=== PATIENT | female | born 1995 | race Caucasian/White ===

== ENCOUNTER 2018-03-06 13:27 | Emergency (ER) | payer OTHER, SELFPAY ==
[2018-03-06 13:29] VITALS: BP 112/61; PULSE 71; RESP 18; TEMP 36.9; O2SAT 98; BMI 23.3
--- NOTE | 2018-03-06 13:56 | EKG12_ITS ---
Test Reason : SYNCOPE Blood Pressure : / mmHG Vent. Rate : 063 BPM Atrial Rate : 063 BPM P-R Int : 162 ms QRS Dur : 074 ms QT Int : 392 ms P-R-T Axes : 035 062 063 degrees QTc Int : 401 ms Normal sinus rhythm Low voltage QRS (limb leads) Confirmed by DEMARIO GUERRIER, GABE ([id number]), film or videotape editor PRAVEEN IBARRA ([id number] on 03/08/2018 3:12:42 PM Referred By: ANGELLA Confirmed By:GABE HANKS MD
--- NOTE | 2018-03-06 13:56 | CT_ITS ---
STUDY: CT BRAIN WITHOUT CONTRAST REASON FOR EXAM: Female, 23 years old. SYNCOPE WITH FALL RADIATION DOSAGE (If Supplied By Facility): CTDIvol = ( 44.99 ) mGy, DLP = ( 779.24 ) mGycm TECHNIQUE: Transaxial CT imaging of the brain was performed without administration of intravenous contrast material. Individualized dose optimization techniques were used for this CT. COMPARISON: None. FINDINGS: Normal soft tissue structures. Normal calvarium. Normal size ventricles and extra-axial spaces for the patient's age. Normal white matter tracts of the cerebral hemispheres. Normal basal ganglia and thalami. Normal brainstem. Normal cerebellum. There is no intracranial hemorrhage. There are no findings of an acute ischemic infarction. Normal visualized paranasal sinuses. CT/Brain/Head without Contrast IMPRESSION: Normal unenhanced CT scan of the brain. Electronically Signed: Felix Monique MD at 15:47 EDT , Service support ,
[2018-03-06 14:07] VITALS: BP 103/62; BP 109/64; BP 99/50; PULSE 61; PULSE 82; PULSE 85
[2018-03-06] MEDS: 0.9% Normal Saline 1,000 ML 150 ML IV (14:26)
[2018-03-06 14:38] LABS: Absolute Lymphocyte Count 2.85 X10^3/ul (0.83-4.51); Absolute Neutrophil Count 10.1 X10^3/uL (2.0-7.7); Basophil# 0.02 X10^3/uL; Basophil% 0.1 % (0-1); Eosinophil# 0.07 X10^3/uL; Eosinophils% 0.5 % (0-5); Lymphocyte # 2.85 X10^3/ul (4.0); Lymphocyte % 19.9 % (19-41); Mean Corp Hgb Conc 31.8 g/gl (32-36); Mean Corpuscular Hgb 29.4 pg (27.0-32.0); Mean Corpuscular Volume 92.2 fL (81-99); Mean Platelet Vol. 9.7 fl (6.2-12.0); Monocyte# 1.29 X10^3/uL; Neutrophil # 10.07 X10^3/uL (2.7-7.7); Neutrophil % 70.4 % (47-70); Platelet Count 228 K/mm3 (150-450); RBC Distribution Width CV 13.2 % (11.6-14.6); RBC Distribution Width SD 44.7 fl (35.1-43.9); Red Blood Count 4.77 M/mm3 (4.2-5.4); White Blood Count 14.3 K/mm3 (4.4-11.0)
[2018-03-06 14:44] LABS: POSITIVE COUNT NO; POSITIVE DIFFERENTIAL NO; POSITIVE MORPHOLOGY NO
[2018-03-06 15:04] LABS: Anion Gap 4 (5-15); BUN 10 mg/dL (7-18); BUN/Creat Ratio 12.6 RATIO (10-20); Calcium,Total 8.8 mg/dL (8.5-10.1); Chloride 106 mmol/L (98-107); EST Glomerular Filtration Rate 97 mL/min (>60); Est Glom Filt Rate - Afr Amer 117 mL/min (>60); Estimated Creatinine Clearance 104.14 ml/min; Glucose 79 mg/dL (74-106); Potassium 4.2 mmol/L (3.5-5.1); Sodium Level 140 mmol/L (136-145)
[2018-03-06 15:09] LABS: hCG Titer Quant., Serum < 1 mIU/mL (<9 non-preg)
--- NOTE | 2018-03-06 15:44 | CT_ITS ---
STUDY: CT FACIAL BONES WITHOUT CONTRAST REASON FOR EXAM: Female, 23 years old. SYNCOPE WITH FALL LEFT MAXILLARY AND EYE SWELLING RADIATION DOSAGE (If Supplied By Facility): CTDIvol = ( 29.38 ) mGy, DLP = ( 510.73 ) mGycm TECHNIQUE: The patient was scanned in a multi detector CT scanner. Sagittal and coronal images were reconstructed. Individualized dose optimization techniques were used for this CT. COMPARISON: None. FINDINGS: Soft tissue swelling overlying the left maxilla and zygoma. No underlying fracture. Normal orbital hall and orbital contents. Normal nasal bones and anterior nasal spine. Normal facial bones. There is no demonstrated fracture. Normal visualized paranasal sinuses. CT/Sinus/Facial Bone IMPRESSION: Soft tissue swelling overlying the left maxilla and zygoma. No underlying fracture. Electronically Signed: Felix Monique MD at 16:41 EDT , Service support ,
--- NOTE | 2018-03-06 15:53 | ED.VISSUMM ---
- ER Visit Summary Date of Service: 03/06/18 Chief Complaint: [Syncope] History of Present Illness: The patient is a 23 F [presents the emergency department complaint of syncopal episode that occurred last evening. Patient states that she was at a friend's house and it was hot in the house when she started feeling somewhat lightheaded and had some blurry vision. Patient decided to go outside and get some fresh air and while on the porch barely had a syncopal episode. Patient struck the left side of her face on the concrete sidewalk. Patient next remembers waking up and she was back inside the house. Apparently her girlfriend had noticed her pass out and got help and others help her into the house. Patient states she has had 2 other episodes of syncope in the past without have presented similarly. She denies any chest pain or palpitations prior to the event. She has not been ill recently. Patient does not believe she is as she does have an IUD.] Physical Examination: HEENT-PERRLA, EOMI. Cranial nerves II through XII grossly intact. TMs clear. Mucous membranes moist. No adenopathy. She has ecchymosis and bruising to the inferior left orbit. Patient has bruising over the left cheek and tenderness over the zygomatic arch. No obvious depressions noted. Extraocular muscle movement is painless and there is no evidence for entrapment. Cardiovascular-regular rate and rhythm without murmur or ectopy Lungs-clear to auscultation, chest wall stable without crepitus or subcu emphysema Abdomen-normoactive bowel sounds, soft, nontender, no rebound or rigidity, no peritoneal signs. Neuro pxlg-[id number]-fcvm and heel patterson testing within normal limits, negative Romberg, negative pronator drift, fundi benign Extremities-intact ?4, normal range of motion, normal pulses, atraumatic [] Test Results: [EKG obtained on arrival shows sinus rhythm with a ventricular rate of 63 bpm with no acute ST segment changes. CBC with differential showed a white count of 14, hemoglobin 14, hematocrit 44, platelets 228. Chemistries unremarkable. HCG was negative. Orthostatic vital signs were negative. CT scan of the brain without contrast was normal. CT facial bones pending] Emergency Department Course and Treatment: [] Treatment Plan: [Care of patient turned over the afternoon physician awaiting results of facial CT and final disposition] Disposition: [Pending] Impression: [Syncope-suspect vasovagal Facial contusion] This note was generated with [employer] dictation software. It may contain incorrect words, spelling, and punctuation that were not noted in review of the chart prior to signing ED Disposition - Plan for ED Patient: Chief Complaint: Syncope Referrals: [facility] Doctor,Out of [Primary Care Provider] -
--- NOTE | 2018-03-06 15:57 | ED.DCSUM_ITS ---
- ER Visit Summary Date of Service: 03/06/18 Chief Complaint: [Syncope] History of Present Illness: The patient is a 23 F [presents the emergency department complaint of syncopal episode that occurred last evening. Patient states that she was at a friend's house and it was hot in the house when she started feeling somewhat lightheaded and had some blurry vision. Patient decided to go outside and get some fresh air and while on the porch barely had a syncopal episode. Patient struck the left side of her face on the concrete sidewalk. Patient next remembers waking up and she was back inside the house. Apparently her girlfriend had noticed her pass out and got help and others help her into the house. Patient states she has had 2 other episodes of syncope in the past without have presented similarly. She denies any chest pain or palpitations prior to the event. She has not been ill recently. Patient does not believe she is as she does have an IUD.] Physical Examination: HEENT-PERRLA, EOMI. Cranial nerves II through XII grossly intact. TMs clear. Mucous membranes moist. No adenopathy. She has ecchymosis and bruising to the inferior left orbit. Patient has bruising over the left cheek and tenderness over the zygomatic arch. No obvious depressions noted. Extraocular muscle movement is painless and there is no evidence for entrapment. Cardiovascular-regular rate and rhythm without murmur or ectopy Lungs-clear to auscultation, chest wall stable without crepitus or subcu emphysema Abdomen-normoactive bowel sounds, soft, nontender, no rebound or rigidity, no peritoneal signs. Neuro sths-vhsixp-wkte and heel patterson testing within normal limits, negative Romberg, negative pronator drift, fundi benign Extremities-intact ?4, normal range of motion, normal pulses, atraumatic [] Test Results: [EKG obtained on arrival shows sinus rhythm with a ventricular rate of 63 bpm with no acute ST segment changes. CBC with differential showed a white count of 14, hemoglobin 14, hematocrit 44, platelets 228. Chemistries unremarkable. HCG was negative. Orthostatic vital signs were negative. CT scan of the brain without contrast was normal. CT facial bones pending] Emergency Department Course and Treatment: [] Treatment Plan: [Care of patient turned over the afternoon physician awaiting results of facial CT and final disposition] Disposition: [Pending] Impression: [Syncope-suspect vasovagal Facial contusion] This note was generated with [employer] dictation software. It may contain incorrect words, spelling, and punctuation that were not noted in review of the chart prior to signing ED Disposition - Plan for ED Patient: Chief Complaint: Syncope Referrals: [facility] Doctor,Out of [Primary Care Provider] -
--- NOTE | 2018-03-06 17:00 | ED.DEP ---
ED Disposition - Plan for ED Patient: Disposition: Home or Assisted Living Chief Complaint: Syncope Instructions: ED Syncope Vasovagal, ED Contusion Face Referrals: [facility],Out of [Primary Care Provider] -
[2018-03-06 17:10] VITALS: BP 95/58; PULSE 57; RESP 12; O2SAT 99
== END 2018-03-06 17:13 | disposition home or self-care (01) ==
PROVIDERS: Emergency Provider Emergency Medicine
DX: R55 Syncope and collapse (principal); S00.83XA Contusion of other part of head, initial encounter; W19.XXXA Unspecified fall, initial encounter; Y93.9 Activity, unspecified; Y92.89 Other specified places as the place of occurrence of the external cause; Y99.9 Unspecified external cause status; Z97.5 Presence of (intrauterine) contraceptive device; Z72.0 Tobacco use
CPT/HCPCS: 70450; 70486; 80048; 84702; 85025; 93005; 96360; 96361; 99285; J7030